=== PATIENT | male | born 2000 | race Caucasian/White ===

== ENCOUNTER 2022-12-02 11:20 | Outpatient (CLI) | payer BC, SELFPAY ==
[2022-12-02 12:19] LABS: Alanine Aminotransferase 36 U/L (6-50); Albumin Level 4.2 g/dL (3.5-5.1); Alkaline Phosphatase 42 U/L (38-126); Anion Gap 6 mmol/L (8-16); Aspartate Amino Transferase 25 U/L (17-59); Bilirubin,Total 1.2 mg/dL (0.2-1.3); Blood Urea Nitrogen 13 mg/dL (9-20); Carbon Dioxide 26 mmol/L (22-30); Chloride 107 mmol/L (98-107); Estimated Glomerular Filt Rate > 60; Glucose 115 mg/dL (65-110); Potassium 4.2 mmol/L (3.4-5.0); Sodium 139 mmol/L (137-145)
== END 2022-12-02 11:21 | disposition home or self-care (01) ==
LOC: ANHLAB 11:27
PROVIDERS: PCP Pediatrics
DX: Z51.81 Encounter for therapeutic drug level monitoring (principal); Z79.899 Other long term (current) drug therapy
CPT/HCPCS: 36415; 80053